=== PATIENT | female | born 1980 | race Caucasian/White ===

== ENCOUNTER 2018-09-04 08:05 | Outpatient (CLI) | payer BC, OTHER | END 2018-09-04 08:06 | disposition home or self-care (01) | LOC: LAB.WCP 08:05 | PROVIDERS: ATTEND Physician Assistant | DX: R35.0 Frequency of micturition (principal) | CPT/HCPCS: 87086 ==

== ENCOUNTER 2018-09-05 08:00 | Outpatient (CLI) | payer OTHER ==
[2018-09-06 10:40] LABS: HEPATITIS B SURFACE ANTIGEN NON-REACTIVE (NON-REACTIVE)
[2018-09-06 11:12] LABS: HIV AG/AB 4TH GEN NON-REACTIVE (NON-REACTIVE)
[2018-09-06 12:46] LABS: HEPATITIS C ANTIBODY NON-REACTIVE (NON-REACTIVE)
== END 2018-09-05 23:59 | disposition home or self-care (01) ==
LOC: LAB.WCP 08:00
PROVIDERS: ATTEND Physician Assistant
DX: Z77.21 Contact with and (suspected) exposure to potentially hazardous body fluids (principal); W46.0XXA Contact with hypodermic needle, initial encounter
CPT/HCPCS: 36415; 81599; 86317; 86705; 86803; 87340; 87389

== ENCOUNTER 2018-10-17 07:54 | Outpatient (CLI) | payer OTHER ==
[2018-10-18 06:47] LABS: HEPATITIS C ANTIBODY NON-REACTIVE (NON-REACTIVE)
[2018-10-18 13:16] LABS: HEPATITIS B SURFACE ANTIGEN NON-REACTIVE (NON-REACTIVE)
[2018-10-20 16:16] LABS: HIV AG/AB 4TH GEN NON-REACTIVE (NON-REACTIVE)
== END 2018-10-17 23:59 | disposition home or self-care (01) ==
LOC: LAB.WCP 07:54
PROVIDERS: ATTEND Physician Assistant
DX: Z77.21 Contact with and (suspected) exposure to potentially hazardous body fluids (principal); W46.0XXA Contact with hypodermic needle, initial encounter
CPT/HCPCS: 36415; 81599; 86705; 86803; 87340; 87389